=== PATIENT | male | born 1945 | race Caucasian/White ===

== ENCOUNTER 2018-03-13 11:19 | Day surgery (SDC) | payer MEDICARE, BC, SELFPAY ==
--- NOTE | 2018-03-13 | PATH_ITS ---
[facility] Accession Number: [id number] . 01 Material submitted: . PART A: ASCENDING COLON POLYP PART B: TRANSVERSE COLON POLYP . 02 Diagnosis: A. Biopsy Ascending Colon Polyp: Tubular adenoma. . B. Biopsy Transverse Colon Polyp: Tubular adenoma. MRV/03/14/2018 . 02 Electronically signed: . Herberth Gould MD, Pathologist NPI- [id number] . 01 Gross description: . Received two formalin-filled containers both labeled with the patient's name. . A. In a container labeled ascending col polyp, the specimen consists of a 0.3 cm portion of tissue. Entirely submitted in cassette A. B. In a container labeled transverse col polyp, the specimen consists of a 0.3 cm portions of tissue. Entirely submitted in cassette B. ([facility] [place]:[id number]) /[facility] . 02 Pathologist provided ICD-10: D12.2 . 02 CPT . 797044, 271016 Performed at: 01 [facility] [address] [place] [id number] MD Hiram Barrera MD Phone: [phone] Performed at: 02 [facility] [address] [place], [place] [id number] MD Aj Benavidez MD Phone: [phone]
--- NOTE | 2018-03-13 11:34 | P.HP_ITS ---
History of Present Illness Date Patient Seen: 03/13/18 Chief complaint: [id number] Narrative: 72-year-old male with a history of colon polyps and last colonoscopy performed February 2014 in [place]; report is not available to me but he was told to return in 3-5 years. He is here for colon polyp surveillance. Meds Home Medications Medication Instructions Recorded Confirmed Type atorvastatin [Lipitor] #0 08/21/16 History azithromycin [Zithromax Z-Ihsan] 0 PO QDAY #6 tab 08/21/16 Rx Allergies Allergy/AdvReac Type Severity Reaction Status Date / Time No Known Allergies Allergy Uncoded 03/13/18 11:40 Review of Systems Review of Systems All systems reviewed & are unremarkable except as noted in HPI and below Exam Narrative Exam Narrative: General: Patient is overweight, not in apparent distress Cardiovascular: Regular rate and rhythm, no murmurs, rubs, or gallops; no evidence of edema; no palpable abdominal aortic aneurysm Gastrointestinal: Normoactive bowel sounds, soft, nontender, nondistended, no rebound tenderness, no hepatosplenomegaly, no evidence of hernia Assessment & Plan Plan: Assessment/Plan Narrative: 72-year-old male with history of colon polyps in 2013. Unfortunately his colonoscopy report is not available for review but he was told to return in 3-5 years. He is here for colon polyp surveillance and has no active GI symptoms. Regarding the procedure(s), the risks and potential complications, benefits, and alternatives (including not doing the procedure) were discussed with the patient. The risks include but are not limited to bleeding, splenic injury, infection, perforation which may require surgical intervention, missed lesions, and adverse reactions to sedative medicines. After a question and answer period , the patient agreed to proceed with the procedure(s) and gives informed consent.
[2018-03-13 11:41] VITALS: BP 129/80; PULSE 66; RESP 16; TEMP 37.4; O2SAT 96; BMI 27.8
[2018-03-13] MEDS: MIDAZOLAM 5 MG/5 ML VIAL IV (13:21)
[2018-03-13] MEDS: fentaNYL 250 MCG/5 ML INJ IV (13:22)
--- NOTE | 2018-03-13 13:31 | PM.OP.ENDO ---
Operative Date/Time/Diagnoses Date of procedure: 03/13/18 Procedure Notes Procedure in detail: Surgeon: Klaus Mora MD Procedure: Colonoscopy with polypectomy Preoperative diagnosis: Colon polyp surveillance, last colonoscopy 2013 Postoperative diagnosis: Colon polyp status post polypectomy, diverticulosis, grade 1 internal hemorrhoids Medications: Conscious sedation using 4 mg IV of Midazolam and 100 mcg IV of Fentanyl Preanesthesia Assessment An H and P was performed/updated and the Px?s ASA class is 2. The procedure was discussed in detail with the patient. The potential risks and complications including infection, bleeding, missed lesions, perforation, need for surgery in case of perforation, prolonged hospital stay, and were explained. A brief question and answer period was allotted and once all questions were answered, informed consent was obtained. The patient was brought back to the procedure room and placed on standard monitoring. The patient?s vital signs were monitored continuously throughout the entire procedure. Prior to starting, a timeout was performed to confirm the patient?s identity, allergies, medications, and procedure. Procedure in detail The patient was placed in left lateral decubitus position and once adequate sedation was obtained a CK was performed. The digital rectal examination did not reveal any palpable lesions. The tip of the colonoscope was placed in the anal canal and advanced without difficulty all the way to the cecum which was identified by the appendiceal orifice and the ileocecal valve. The terminal ileum was intubated to a distance of 5 cm and the mucosa appeared normal. The colonoscope was brought back to the cecum and careful examination of all farias of the colon was performed with irrigation of a residual stool. In the ascending colon, there was note of a 2 mm sessile polyp which was removed by means of cold Jumbo forceps. Resection and retrieval were complete with minimal bleeding. In the distal transverse colon, there was note of a 2 mm sessile polyp which was removed by means of cold Jumbo forceps. Resection and retrieval were complete with minimal bleeding. There was note of scattered medium-sized diverticula in the ascending colon. There was note of multiple medium-size diverticula in the sigmoid colon. Retroflexion was performed in the rectum which revealed grade 1 internal hemorrhoids The patient tolerated the procedure well and will be brought back to the recovery area to be discharged once criteria are met. The prep was judged to be good/excellent and adequate to identify polyps less than 5 mm. The withdrawal time was 10 min. The total physician intraservice time was 16 min. Complications There were no complications and estimated blood loss was minimal. Recommendations: Resume previous diet Continue outPx medications Follow up pathology results Repeat colonoscopy in 5 years for surveillance An emergency contact number was given to the patient for any complications related to the procedure
--- NOTE | 2018-03-13 13:36 | P.DS_ITS ---
History of Present Illness Chief complaint: [id number] Narrative: 72-year-old male with a history of colon polyps and last colonoscopy performed February 2014 in [place]; report is not available to me but he was told to return in 3-5 years. He is here for colon polyp surveillance. Discharge Providers Primary care physician: Alberto Mcgraw MD Discharge provider: Klaus Mora MD Discharge Date: 03/13/18 Exam Vital Signs (past 8 hours): - 03/13/18 11:41 Temperature 99.4 F Pulse Rate 66 Respiratory Rate 16 Blood Pressure 129/80 Pulse Oximetry 96 Oxygen Delivery Method Room Air Narrative Exam Narrative: General: Patient is overweight, not in apparent distress Cardiovascular: Regular rate and rhythm, no murmurs, rubs, or gallops; no evidence of edema; no palpable abdominal aortic aneurysm Gastrointestinal: Normoactive bowel sounds, soft, nontender, nondistended, no rebound tenderness, no hepatosplenomegaly, no evidence of hernia Discharge Plan Discharge Plan Patient Disposition: Home Discharge Med Rec/Prescriptions Prescriptions: Continue atorvastatin [Lipitor] 20 MG tablet Qty: 0 RF: 0 azithromycin [Zithromax Z-Ihsan] 250 MG tablet PO QDAY Qty: 6 RF: 0 Discharge Orders: Discharge (Order); Ordered 03/13/18 Ordered By: Klaus Mora Provider Discharge Instructions Diet: Diet as Tolerated Visit Report/Discharge Packet Stand Alone Forms: Surgery Discharge Discharge Data Primary Care Provider: Alberto Mcgraw Attending Provider: Klaus Mora
[2018-03-13 13:41] VITALS: BP 125/77; PULSE 73; RESP 16; TEMP 37.3; O2SAT 99
== END 2018-03-13 13:55 | disposition home or self-care (01) ==
PROVIDERS: PCP Internal Medicine; Visit Provider Internal Medicine Gastroenterology
PROC: 0DJD8ZZ Inspection of Lower Intestinal Tract, Via Natural or Artificial Opening Endoscopic (ICD-10-PCS; CPT 45378; principal; 2018-03-13 13:00)
DX: Z86.010 Personal history of colon polyps (principal); K57.30 Diverticulosis of large intestine without perforation or abscess without bleeding; K64.0 First degree hemorrhoids
CPT/HCPCS: 45380; 88305; J2250; J3010

== ENCOUNTER → 2018-05-23 08:42 | Outpatient (CLI) | payer MEDICARE, BC, SELFPAY ==
[2018-05-23 09:30] LABS: Add Manual Diff / Slide Review NO; Basophils Percent Auto 0.7 % (0-2); Eosinophils Percent Auto 3.2 % (2-4); Hematocrit 44.5 % (41-53); Hemoglobin 15.4 g/dL (13.5-17.5); Lymphocytes Percent Auto 25.8 % (25-40); Mean Corpuscular HGB Conc 34.7 % (30-36); Mean Corpuscular Hemoglobin 29.9 PG (26-34); Mean Corpuscular Volume 86.2 fL (80-100); Monocytes Percent Auto 8.7 % (3-14); Neutrophils Absolute Auto 2900 /uL (1500-7000); Neutrophils Percent Auto 61.6 % (50-75); Platelet Count 160 X10^3/uL (150-400); Red Blood Cell Count 5.16 X10^6/uL (4.5-5.9); Red Cell Distribution Width 13.6 % (11.6-14.8); White Blood Cell Count 4.7 X10^3/uL (4.5-11.0)
[2018-05-23 09:40] LABS: Alanine Aminotransferase 36 IU/L (21-72); Albumin 4.3 g/dL (3.5-5.0); Albumin Globulin Ratio 1.4 (1.0-2.8); Alkaline Phosphatase 47 U/L (38-126); Aspartate Aminotransferase 33 IU/L (17-59); Bilirubin Total 1.8 mg/dL (0.2-1.3); Blood Urea Nitrogen 18 mg/dL (9-20); Calcium 9.1 mg/dL (8.4-10.2); Carbon Dioxide 27 mmol/L (22-32); Chloride 105 mmol/L (98-107); Cholesterol 167 mg/dL (140-199); Estimated Glomerular Filt Rate > 60.0 mL/min (>60); Globulin 3.1 g/dL (1.7-4.1); Glucose 94 mg/dL (80-110); HDL Cholesterol 40 mg/dL (40-60); HEMOLYSIS < 15 (0-50); LDL Cholesterol Calculated 91 mg/dL (<100); Potassium 4.4 mmol/L (3.4-5.1); Sodium 141 mmol/L (137-145); Total Protein 7.4 g/dL (6.3-8.2); Triglycerides 180 mg/dL (35-150)
[2018-05-23 10:07] LABS: Prostate Specific Antigen 0.696 ng/mL (0.10-4.00)
[2018-05-23 10:15] LABS: HEMOLYSIS < 15 (0-50); Iron 106 ug/dL (49-181)
[2018-05-23 10:26] LABS: Percent Iron Saturation 32 % (20-50); Total Iron Binding Capacity 329 ug/dL (261-462); Transferrin 272 mg/dL (206-381)
== END ==
PROVIDERS: PCP Internal Medicine; Visit Provider Internal Medicine
DX: Z00.00 Encounter for general adult medical examination without abnormal findings (principal); E78.00 Pure hypercholesterolemia, unspecified; E66.9 Obesity, unspecified; G25.81 Restless legs syndrome; Z12.5 Encounter for screening for malignant neoplasm of prostate
CPT/HCPCS: 36415; 80053; 80061; 83540; 83550; 84153; 85025; G0103

== ENCOUNTER → 2019-06-10 08:58 | Outpatient (CLI) | payer MEDICARE, BC, SELFPAY ==
[2019-06-10 10:16] LABS: Add Manual Diff / Slide Review NO; Basophils Absolute Auto 0 /uL (0-100); Basophils Percent Auto 0.7 % (0-2); Eosinophils Absolute Auto 100 /uL (0-450); Eosinophils Percent Auto 3.2 % (2-4); Hematocrit 46.1 % (41-53); Hemoglobin 15.8 g/dL (13.5-17.5); Lymphocytes Absolute Auto 1200 /uL (1100-4500); Lymphocytes Percent Auto 26.8 % (25-40); Mean Corpuscular HGB Conc 34.4 % (30-36); Mean Corpuscular Hemoglobin 29.8 PG (26-34); Mean Corpuscular Volume 86.8 fL (80-100); Monocytes Absolute Auto 500 /uL (0-900); Monocytes Percent Auto 9.8 % (3-14); Neutrophils Absolute Auto 2800 /uL (1500-7000); Neutrophils Percent Auto 59.5 % (50-75); Platelet Count 155 X10^3/uL (150-400); Red Blood Cell Count 5.31 X10^6/uL (4.5-5.9); Red Cell Distribution Width 13.6 % (11.6-14.8); White Blood Cell Count 4.7 X10^3/uL (4.5-11.0)
[2019-06-10 11:13] LABS: Alanine Aminotransferase 30 IU/L (<50); Albumin 4.3 g/dL (3.5-5.0); Albumin Globulin Ratio 1.3 (1.0-2.8); Alkaline Phosphatase 53 U/L (38-126); Aspartate Aminotransferase 33 IU/L (17-59); BUN Creatinine Ratio 16.7 (6-22); Bilirubin Total 1.9 mg/dL (0.2-1.3); Blood Urea Nitrogen 15 mg/dL (9-20); Calcium 9.4 mg/dL (8.4-10.2); Carbon Dioxide 28 mmol/L (22-32); Chloride 101 mmol/L (98-107); Cholesterol 162 mg/dL (140-199); Estimated Glomerular Filt Rate > 60.0 mL/min (>60); Globulin 3.2 g/dL (1.7-4.1); Glucose 90 mg/dL (80-110); HDL Cholesterol 37 mg/dL (40-60); HEMOLYSIS < 15 (0-50); LDL Cholesterol Calculated 89 mg/dL (<100); Potassium 4.6 mmol/L (3.4-5.1); Sodium 138 mmol/L (137-145); Total Protein 7.5 g/dL (6.3-8.2); Triglycerides 180 mg/dL (35-150)
== END ==
PROVIDERS: PCP Internal Medicine; Visit Provider Internal Medicine
DX: E78.00 Pure hypercholesterolemia, unspecified (principal); E66.9 Obesity, unspecified
CPT/HCPCS: 36415; 80053; 80061; 85025

== ENCOUNTER → 2020-08-30 07:30 | Outpatient (CLI) | payer MEDICARE, BC, SELFPAY ==
[2020-08-30 08:37] LABS: Alanine Aminotransferase 30 IU/L (<50); Albumin Globulin Ratio 1.4 (1.0-2.8); Alkaline Phosphatase 48 U/L (38-126); Aspartate Aminotransferase 39 IU/L (17-59); Bilirubin Total 1.6 mg/dL (0.2-1.3); Blood Urea Nitrogen 17 mg/dL (9-20); Calcium 9.3 mg/dL (8.4-10.2); Carbon Dioxide 27 mmol/L (22-32); Chloride 105 mmol/L (98-107); Cholesterol 161 mg/dL (140-199); Estimated Glomerular Filt Rate > 60.0 mL/min (>60); Globulin 2.9 g/dL (1.7-4.1); Glucose 103 mg/dL (80-110); HDL Cholesterol 54 mg/dL (40-60); HEMOLYSIS < 15 (0-50); LDL Cholesterol Calculated 84 mg/dL (<100); Potassium 4.3 mmol/L (3.4-5.1); Sodium 139 mmol/L (137-145); Total Protein 6.9 g/dL (6.3-8.2); Triglycerides 114 mg/dL (35-150)
== END ==
PROVIDERS: PCP Internal Medicine; Referring Provider Internal Medicine; Visit Provider Internal Medicine
DX: Z00.00 Encounter for general adult medical examination without abnormal findings (principal); E78.00 Pure hypercholesterolemia, unspecified
CPT/HCPCS: 36415; 80053; 80061

== ENCOUNTER → 2021-06-27 13:23 | Outpatient (CLI) | payer MEDICARE, BC, SELFPAY ==
[2021-06-27 14:55] LABS: COVID19 -Nasal RAPID Negative (Negative)
== END ==
PROVIDERS: PCP Internal Medicine; Visit Provider Surgery
DX: Z01.812 Encounter for preprocedural laboratory examination (principal); Z20.822 Contact with and (suspected) exposure to COVID-19
CPT/HCPCS: 87635; C9803

== ENCOUNTER 2021-06-28 12:55 | Day surgery (SDC) | payer MEDICARE, BC, SELFPAY ==
[2021-06-27 14:53] VITALS: BMI 24.9
[2021-06-28] VITALS (8 sets, daily range): BP systolic 134–164; BP diastolic 71–91; PULSE 55–68; RESP 12–18; TEMP 36.5–36.8; O2SAT 99–100; BMI 24.9
[2021-06-28] MEDS: LACTATED RINGERS 1,000 ML 100 ML IV (13:46)
--- NOTE | 2021-06-28 15:00 | PM.PREOP ---
Pre-operative Note COVID-19 Criteria for continued procedure: Continuing or worsening of significant or severe pain Interval Note History & Physical reviewed/Exam performed by Physician: Yes Changes to H&P: No
[2021-06-28] MEDS: CEFAZOLIN 2 GM/20 ML SYRINGE IV (15:20)
--- NOTE | 2021-06-28 15:34 | SUR.OPER ---
Supine on padded OR bed, head on pillow, arms secured on padded arm boards at <90 degrees abduction, legs uncrossed, safety belt at thigh, tape over blanket over lower legs.
[2021-06-28] MEDS: BUPIVACAINE 0.25% (PF) VIAL 30 ML INJ (15:43)
--- NOTE | 2021-06-28 16:47 | PM.OP.1 ---
Operative Date/Time/Diagnoses Date of procedure: 06/28/21 Time of procedure: 16:48 Pre-op diagnosis: right inguinal hernia Post-op diagnosis: same Procedure & Clinicians Procedure: open right inguinal hernia repair Same procedure as scheduled: Yes Indications: reducible right inguinal hernia Surgeon: Tristen Beltran Click Yes if Unassisted: Yes Anesthesia Type: General Operative Notes Findings: Direct floor defect and indirect hernia Specimen(s): none sent Estimated Blood Loss (mL): 10 Procedure in detail: The patient was placed supine on the table and bilateral lower extremity compression devices were applied. Anesthesia was induced they were intubated with an LMA and received 2g of Ancef. A time-out was performed. They were prepped and draped in sterile fashion. The right external inguinal ring and the anterior superior iliac crest were identified and marked. 1 finger breath above the inguinal ligament the skin was infiltrated with 0.25% bupivacaine. The skin incision was made here and the subcutaneous tissues were divided with electrocautery exposing the external oblique aponeurosis which was then opened along the direction of its fibers. Using blunt dissection the internal oblique aporneurosis was from the external oblique upper leaflet to identify the iliohypogastric nerve. Using a kittner the cord was carefully dissected away from the inguinal canal adjacent to the pubic tubercle. The cord including the vas deferens, testicular bloody supply, ilioguinal and genital nerve were encircled with a [place] drain. A direct floor defect was identified and it was reduced into the abdomen and the internal oblique aporneuorsis was approximated to the inguinal ligament with Ethibond suture to reapproximate the floor over a plug of mesh. The cremasteric fibers surrounding the cord were divided using electrocautery adjacent to the internal ring.. The vas deferens and the testicular vessels were preserved and protected. There was a small indirect hernia on the anterior medial aspect of the cord which was skeletonized away from the vas deferens and testicular blood supply. The indirect hernia was skeletonized back to the internal ring and reduced spontaneously into the abdomen. I selected a 7x 15 cm lightweight Pro Loop hernia mesh. The inferior medial aspect of the mesh was anchored to insertion of the rectus muscle to the pubic tubercle such that there was approximately 2 cm of tubercle overlap with Ethibond and then was run continuously along the inferior edge of the mesh to the shelving edge of the inguinal ligament. Interrupted 3 0 Vicryl suture was used to anchor the superior aspect of the mesh to the conjoined tendon in several places. The tails were then reapproximated loosely around the spermatic cord. The tails of the mesh were then tucked under the external oblique aponeurosis. The repair was checked for hemostasis. The wound was irrigated with sterile saline. The external oblique aponeurosis was reapproximated in a running fashion using 3 0 Vicryl. The subcutaneous tissues were reapproximated with 3 0 Vicryl skin closed with 4 0 Monocryl followed by the application of Dermabond. At the end of the operation I ensured that both testicles were within the scrotum. The sponge instrument count at the end operation was correct. The patient emerged from anesthesia was extubated and transferred to the postoperative care unit in stable condition. A total of 30 ml of of 0.25% bupivicaine was used to infiltrate the skin. Complications: none Post-operative Condition: stable Disposition: same day surgery
== END 2021-06-28 17:50 | disposition home or self-care (01) ==
PROVIDERS: PCP Internal Medicine; Referring Provider Surgery; Visit Provider Surgery
PROC: (CPT 49505; principal; 2021-06-28 16:00)
DX: K40.90 Unilateral inguinal hernia, without obstruction or gangrene, not specified as recurrent (principal)
CPT/HCPCS: 49505; 82962; J0690; J1100; J2250; J2405; J2704; J3010

== ENCOUNTER → 2021-09-26 10:32 | Outpatient (CLI) | payer MEDICARE, BC, SELFPAY ==
[2021-09-26 11:09] LABS: COVID19 -Nasal RAPID Negative (Negative)
== END ==
PROVIDERS: PCP Internal Medicine; Visit Provider Surgery
DX: Z20.822 Contact with and (suspected) exposure to COVID-19 (principal); Z01.812 Encounter for preprocedural laboratory examination
CPT/HCPCS: 87635; C9803

== ENCOUNTER 2021-09-27 13:33 | Day surgery (SDC) | payer MEDICARE, BC, SELFPAY ==
[2021-09-21 08:59] VITALS: BMI 24.6
[2021-09-27] VITALS (9 sets, daily range): BP systolic 83–155; BP diastolic 42–79; PULSE 50–64; RESP 12–100; TEMP 36.3–36.8; O2SAT 92–100; BMI 24.6
[2021-09-27] MEDS: ACETAMINOPHEN 325 MG TABLET 975 MG PO (13:59)
[2021-09-27] MEDS: LACTATED RINGERS 1,000 ML 42 ML IV (14:00)
[2021-09-27] MEDS: GABAPENTIN 300 MG CAPSULE PO (14:00)
--- NOTE | 2021-09-27 14:06 | PM.PREOP ---
Pre-operative Note Interval Note History & Physical reviewed/Exam performed by Physician: Yes Changes to H&P: No
--- NOTE | 2021-09-27 14:08 | P.OP_ITS ---
Operative Date/Time/Diagnoses Date of procedure: 09/27/21 Time of procedure: 14:08 Pre-op diagnosis: Left inguinal hernia Post-op diagnosis: same Procedure & Clinicians Procedure: Open left inguinal hernia repair with mesh Same procedure as scheduled: Yes Indications: Symptomatic reducible left inguinal hernia Surgeon: Tristen Ibanez Yes if Unassisted: Yes Anesthesia Type: General Operative Notes Findings: direct and indirect hernias Estimated Blood Loss (mL): 10 Procedure in detail: The patient was placed supine on the table and bilateral lower extremity compression devices were applied. Anesthesia was induced they were intubated with an LMA and received Clindamycin. A time-out was performed. They were prep ped and draped in sterile fashion. The left external inguinal ring and the anterior superior iliac crest were identified and marked. 1 finger breath above the inguinal ligament the skin was infiltrated with 0.25% bupivacaine. The skin incision was made here and the subcutaneous tissues were divided with electrocautery exposing the external oblique aponeurosis which was then opened along the direction of its fibers. Using blunt dissection the internal oblique aporneurosis was from the external oblique upper leaflet to identify the iliohypogastric nerve. Using a kittner the cord was carefully dissected away from the inguinal canal adjacent to the pubic tubercle. The cord including the vas deferens, testicular bloody supply, ilioguinal and genital nerve were encircled with a [place] drain. A direct floor defect was identified and it was reduced into the abdomen and the internal oblique aporneuorsis was approximated to the inguinal ligament with Ethibond suture to reapproximate the floor over a plug of mesh. The cremasteric fibers surrounding the cord were divided using electrocautery adjacent to the internal ring.. The vas deferens and the testicular vessels were preserved and protected. There was a small indirect hernia on the anterior medial aspect of the cord which was skeletonized away from the vas deferens and testicular blood supply. The indirect hernia was skeletonized back to the internal ring and reduced spontaneously into the abdomen. I selected a 7x 15 cm lightweight Pro Loop hernia mesh. The inferior medial aspect of the mesh was anchored to insertion of the rectus muscle to the pubic tubercle such that there was approximately 2 cm of tubercle overlap with Ethibond and then was run continuously along the inferior edge of the mesh to the shelving edge of the inguinal ligament. Interrupted 3 0 Vicryl suture was used to anchor the superior aspect of the mesh to the conjoined tendon in several places. The tails were then reapproximated loosely around the spermatic cord. The tails of the mesh were then tucked under the external oblique aponeurosis. The repair was checked for hemostasis. The wound was irrigated with sterile saline. The external oblique aponeurosis was reapproximated in a running fashion using 3 0 Vicryl. The subcutaneous tissues were reapproximated with 3 0 Vicryl skin closed with 4 0 Monocryl followed by the application of Dermabond. At the end of the operation I ensured that both testicles were within the scrotum. The sponge instrument count at the end operation was correct. The patient emerged from anesthesia was extubated and transferred to the postoperative care unit in stable condition. A total of 30 ml of of 0.25% bupivicaine was used to infiltrate the skin. Complications: none Post-operative Condition: stable Disposition: same day surgery
[2021-09-27] MEDS: CEFAZOLIN 2 GM/20 ML SYRINGE IV (14:44)
[2021-09-27] MEDS: BUPIVACAINE 0.5% (PF) VIAL 30 ML INJ (14:45)
--- NOTE | 2021-09-27 14:54 | SUR.OPER ---
Supine on padded OR bed, head on pillow, arms secured on padded arm boards at <90 degrees abduction, legs uncrossed, safety belt at thigh, tape over blanket over lower legs.
--- NOTE | 2021-09-27 16:43 | SUR.PHASEII ---
discharge instructions reviewed with pt and he verbalized understanding.
== END 2021-09-27 16:52 | disposition home or self-care (01) ==
PROVIDERS: PCP Internal Medicine; Referring Provider Surgery; Visit Provider Surgery
PROC: (CPT 49505; principal; 2021-09-27 14:30)
DX: K40.90 Unilateral inguinal hernia, without obstruction or gangrene, not specified as recurrent (principal)
CPT/HCPCS: 49505; 82962; J0690; J1100; J1885; J2405; J2704; J3010

== ENCOUNTER → 2022-04-13 16:25 | Outpatient (CLI) | payer MEDICARE, BC, SELFPAY ==
--- NOTE | 2022-04-13 | DI.US.S_ITS ---
PROCEDURE: US SCROTUM INDICATIONS: Left testicular pain TECHNIQUE: Real-time scanning was performed of the scrotum and testicles, with image documentation. Color and pulse Doppler interrogation was performed of both testicles. COMPARISON: None. FINDINGS: Severely hyperemic left testicle with severely heterogenous echogenicity and echotexture. The multiple punctate foci of bright e echogenicity presumably represent calcifications although this is not definitive. The left testicle measures 3.0 x 3.0 x 5.3 cm. e. The left epididymal tail is prominent and heterogenous with increased vascularity. Both the left and right epididymis contain multiple cysts. The right testicle measures 5.6 x 3.6 x 2.0 cm and is normal in appearanc Septated fluid in the left hemiscrotum with mobile debris. IMPRESSION: Mildly enlarged and markedly hyperemic left testicle with severely heterogenous echogenicity and echotexture. The left epididymis is also enlarged and hyperemic. Findings are most consistent with epididymo-orchitis. A small left hemiscrotal hydrocele with numerous septations and internal debris is likely related. Urology consultation recommended. Dictated by: Ramón Lopez M.D. on 04/13/2022 at 18:13 Approved by: Ramón Lopez M.D. on 04/13/2022 at 18:17
== END ==
PROVIDERS: PCP Internal Medicine; Referring Provider Internal Medicine; Visit Provider Internal Medicine
DX: N50.812 Left testicular pain (principal); N50.89 Other specified disorders of the male genital organs; N43.3 Hydrocele, unspecified; N44.8 Other noninflammatory disorders of the testis
CPT/HCPCS: 76870

== ENCOUNTER 2023-05-28 09:12 | Day surgery (SDC) | payer MEDICARE, BC, SELFPAY ==
[2023-05-28] MEDS: LACTATED RINGERS 1,000 ML 42 ML IV ×2 (09:23→09:38)
[2023-05-28 09:46] VITALS: BP 147/82; PULSE 74; RESP 16; TEMP 36.2; O2SAT 99; BMI 27.6
--- NOTE | 2023-05-28 09:53 | PM.HP.1 ---
History of Present Illness History of Present Illness Date Patient Seen: 05/28/23 Chief complaint: Colonoscopy Narrative: Personal history of colon polyps. Here for colonoscopy. [facility] Medical History Lower urinary tract symptoms Orchitis of left testicle Hx of erectile dysfunction History of colon polyps [facility] Surgical History Hx of right inguinal hernia repair (06/28/21) History of colonoscopy Family History Father Heart disease Stroke Social History marital status: number of children: 1 household members: significant other occupational status: previously employed Smoking Status: Never smoker alcohol intake: current caffeine: Yes Type(s) of exercise: walking frequency: 5-6 times per week duration: 45-60 minutes/day Meds Home Medications and Allergies Home Medications Medication Instructions Recorded Confirmed Type multivitamin 1 tab PO DAILY 06/02/21 05/28/23 History acetaminophen 325 mg capsule 650 mg (2 x 325 mg) PO QID PRN 06/28/21 05/28/23 Rx (Tylenol) pain #60 caps ibuprofen 200 mg tablet 200 mg PO Q6H PRN Pain (Scale 04/26/22 05/28/23 History Score 4-6) Allergies Allergy/AdvReac Type Severity Reaction Status Date / Time No Known Allergies Allergy Verified 05/28/23 09:26 Review of Systems Review of Systems ROS: Yes All systems reviewed with the patient and are negative except as otherwise documented Exam Vital Signs (past 8 hours): - 05/28/23 09:46 Temperature 97.1 F L Pulse Rate 74 Respiratory Rate 16 Blood Pressure 147/82 H Pulse Oximetry 99 Oxygen Delivery Method Room Air Oxygen Delivery Method Room Air Const General: cooperative HENMT Head: normal to inspection Eyes General: appearance normal, both eyes and all related structures Neck Neck: normal visual inspection Chest Chest: normal inspection of the chest Resp Effort & Inspection: normal respiratory effort Cardio Rate: regular rate GI Inspection: normal to inspection Skin General: no rashes or lesions noted Neuro General: patient alert and patient awake Extrem General: normal to inspection and no pedal edema Psych Appearance: grossly normal Assessment & Plan Assessment & Plan narrative: 77-year-old with personal history of adenomatous colon polyps. Colonoscopy is pursued today.
--- NOTE | 2023-05-28 09:54 | PM.PREOP ---
Pre-operative Note Interval Note History & Physical reviewed/Exam performed by Physician: Yes Changes to H&P: No ASA Class (for procedural sedation): I
--- NOTE | 2023-05-28 11:10 | PM.OP.COLON ---
Operative Date/Time/Diagnoses Date of procedure: 05/28/23 Time of procedure: 11:10 Pre-op diagnosis: Personal history of colon polyps Post-op diagnosis: same Procedure & Clinicians Study performed: Colonoscopy Same procedure as scheduled: Yes Indications: Personal history of colon polyps Surgeon: Herberth Woodruff Procedure Notes SCOAP/Timeout: Done Procedure in detail: After the risks and benefits were explained, written and verbal informed consent was obtained. The patient was brought into the procedure room and placed into the left lateral decubitus position. Please see anesthesia note for sedation details. Digital rectal examination was accomplished. The scope was introduced into the patient and advanced under direct visualization to the cecum as identified by the appendiceal orifice and ileocecal valve. The scope was slowly withdrawn to carefully examine the mucosa for any defects or lesions. Comprehensive imaging was accomplished throughout the rectum including the dentate line. The colon was decompressed, the scope was then removed from the patient who tolerated the procedure well. Pediatric colonoscope Bowel prep adequate Scope withdrawal time: 12 minutes Sedation minutes: 21 Specimen(s): none sent Complications: none Impression: There was some scattered diverticulosis all throughout the left colon. No significant polyps mass lesions or inflammatory features identified throughout. On digital exam, grade 1 to grade 2 hemorrhoids were noted. Endoscopic diagnosis 1. Mild hemorrhoids grade 1-2 2. Diverticulosis Post-procedure Plan for aftercare: Repeat colonoscopy 5 years considering personal history of adenomatous colon polyps. Disposition: PACU
[2023-05-28 11:11] VITALS: BP 127/78; PULSE 60; RESP 16; TEMP 36.2; O2SAT 98
[2023-05-28 11:16] VITALS: BP 112/66; PULSE 62; RESP 14; O2SAT 98
[2023-05-28 11:21] VITALS: BP 121/74; PULSE 61; RESP 12; O2SAT 97
[2023-05-28 11:26] VITALS: BP 115/79; PULSE 62; RESP 14; TEMP 36.4; O2SAT 98
[2023-05-28 11:35] VITALS: BP 134/78; PULSE 60; RESP 14; TEMP 36.2; O2SAT 98
== END 2023-05-28 11:48 | disposition home or self-care (01) ==
PROVIDERS: Referring Provider Internal Medicine Gastroenterology; Visit Provider Internal Medicine Gastroenterology
PROC: 0DJD8ZZ Inspection of Lower Intestinal Tract, Via Natural or Artificial Opening Endoscopic (ICD-10-PCS; CPT 45378; principal; 2023-05-28 10:00)
DX: Z12.11 Encounter for screening for malignant neoplasm of colon (principal); Z86.010 Personal history of colon polyps; K64.1 Second degree hemorrhoids; K57.30 Diverticulosis of large intestine without perforation or abscess without bleeding
CPT/HCPCS: G0105; J2704

== ENCOUNTER → 2024-03-18 08:20 | Outpatient (CLI) | payer MEDICARE, BC, SELFPAY ==
[2024-03-18 09:45] LABS: Hematocrit 46.7 % (41-53); Hemoglobin 15.9 g/dL (13.5-17.5); Mean Corpuscular HGB Conc 34.1 % (30-36); Mean Corpuscular Hemoglobin 29.6 PG (26-34); Platelet Count 169 X10^3/uL (150-400); Red Blood Cell Count 5.37 X10^6/uL (4.5-5.9); Red Cell Distribution Width 13.9 % (11.6-14.8); White Blood Cell Count 4.4 X10^3/uL (4.5-11.0)
[2024-03-18 09:59] LABS: Alanine Aminotransferase 24 IU/L (<50); Albumin 4.3 g/dL (3.5-5.0); Albumin Globulin Ratio 1.4 (1.0-2.8); Alkaline Phosphatase 48 U/L (38-126); Aspartate Aminotransferase 38 IU/L (17-59); BUN Creatinine Ratio 14.1 (6-22); Bilirubin Total 1.7 mg/dL (0.2-1.3); Blood Urea Nitrogen 14 mg/dL (9-20); Calcium 9.2 mg/dL (8.4-10.2); Carbon Dioxide 30 mmol/L (22-32); Chloride 104 mmol/L (98-107); Cholesterol 210 mg/dL (140-199); Estimated Glomerular Filt Rate > 60 mL/min (>60); Glucose 102 mg/dL (80-110); HDL Cholesterol 40 mg/dL (40-60); HEMOLYSIS 16 (0-50); LDL Cholesterol Calculated 127 mg/dL (<100); Potassium 4.6 mmol/L (3.4-5.1); Sodium 139 mmol/L (137-145); Total Protein 7.3 g/dL (6.3-8.2); Triglycerides 215 mg/dL (35-150)
== END ==
PROVIDERS: PCP Family Medicine; Referring Provider Family Medicine; Visit Provider Family Medicine
DX: Z13.9 Encounter for screening, unspecified (principal); Z86.39 Personal history of other endocrine, nutritional and metabolic disease; E78.5 Hyperlipidemia, unspecified; L57.0 Actinic keratosis
CPT/HCPCS: 36415; 80053; 80061; 85027